=== PATIENT | female | born 1990 | race Caucasian/White ===

== ENCOUNTER → 2023-10-15 09:06 | Outpatient (CLI) | payer OTHER, SELFPAY ==
[2023-10-15 10:50] LABS: TSH w/ Reflex to FT4 1.15 uIU/mL (0.47-4.68)
[2023-10-15 10:51] LABS: Cortisol AM (Before 10AM) 6.41 ug/dL (4.46-22.7)
== END ==
PROVIDERS: PCP Family Medicine; Referring Provider Family Medicine; Visit Provider Family Medicine
DX: R63.5 Abnormal weight gain (principal)
CPT/HCPCS: 36415; 82533; 84443

== ENCOUNTER → 2023-10-22 08:16 | Outpatient (CLI) | payer OTHER, SELFPAY ==
[2023-10-27 14:50] LABS: Cortisol Fr ug/24hr urine 13 ug/24 hr (6-42); Cortisol, Free, Urine 12 ug/L (Undefined)
== END ==
LOC: LAB 08:17
PROVIDERS: PCP Family Medicine; Referring Provider Family Medicine; Visit Provider Family Medicine
DX: R63.5 Abnormal weight gain (principal)
CPT/HCPCS: 82530

== ENCOUNTER → 2024-05-05 13:26 | Outpatient (CLI) | payer OTHER, SELFPAY ==
[2024-05-05 20:13] LABS: Add Manual Diff / Slide Review NO; Basophils Absolute Auto 0 /uL (0-100); Basophils Percent Auto 0.6 % (0-2); Eosinophils Absolute Auto 100 /uL (0-450); Eosinophils Percent Auto 1.4 % (2-4); Hematocrit 40.4 % (36-46); Hemoglobin 13.7 g/dL (12.0-16.0); Lymphocytes Absolute Auto 1800 /uL (1100-4500); Lymphocytes Percent Auto 23.4 % (25-40); Mean Corpuscular HGB Conc 33.8 % (30-36); Mean Corpuscular Hemoglobin 30.1 PG (26-34); Monocytes Absolute Auto 400 /uL (0-900); Monocytes Percent Auto 4.8 % (3-14); Neutrophils Absolute Auto 5400 /uL (1500-7000); Neutrophils Percent Auto 69.8 % (50-75); Platelet Count 313 X10^3/uL (150-400); Red Blood Cell Count 4.54 X10^6/uL (4.0-5.2); Red Cell Distribution Width 13.4 % (11.6-14.8); White Blood Cell Count 7.7 X10^3/uL (4.5-11.0)
[2024-05-05 20:35] LABS: Alanine Aminotransferase 21 IU/L (<35); Albumin 4.2 g/dL (3.5-5.0); Albumin Globulin Ratio 1.4 (1.0-2.8); Alkaline Phosphatase 79 U/L (38-126); Aspartate Aminotransferase 24 IU/L (14-36); BUN Creatinine Ratio 19.1 (6-22); Bilirubin Total 1.1 mg/dL (0.2-1.3); Blood Urea Nitrogen 13 mg/dL (7-17); Calcium 9.6 mg/dL (8.4-10.2); Carbon Dioxide 28 mmol/L (22-32); Chloride 103 mmol/L (98-107); Estimated Glomerular Filt Rate > 60 mL/min (>60); Glucose 102 mg/dL (70-100); HEMOLYSIS < 15 (0-50); Sodium 136 mmol/L (137-145); Total Protein 7.2 g/dL (6.3-8.2)
[2024-05-05 20:55] LABS: TSH w/ Reflex to FT4 0.56 uIU/mL (0.47-4.68)
== END ==
PROVIDERS: PCP Physician Assistant; Visit Provider Physician Assistant
DX: Z01.812 Encounter for preprocedural laboratory examination (principal); F41.9 Anxiety disorder, unspecified; R63.5 Abnormal weight gain
CPT/HCPCS: 80053; 83036; 84443; 85025